=== PATIENT | male | born 1995 | race Caucasian/White ===

== ENCOUNTER 2017-06-09 23:39 | Emergency (ER) | payer BC ==
[~2017-06-09] VITALS: Ht 177.8 cm; Wt 84.9 kg
[2017-06-09 23:41] VITALS: BP 147/92
[2017-06-09] MEDS ORDERED: LIDOCAINE 1%, 20ML ONE (23:51)
[2017-06-10] MEDS ORDERED: CEPHALEXIN 500 MG CAPSULE ONE (00:21)
[2017-06-10] MEDS ORDERED: CEPHALEXIN 500 MG CAPSULE PO STA (00:33)
== END 2017-06-10 00:37 | disposition home or self-care (01) ==
LOC: ED 06-10 00:25
DX: S61.422A Laceration with foreign body of left hand, initial encounter (principal); W01.110A Fall on same level from slipping, tripping and stumbling with subsequent striking against sharp glass, initial encounter; Y93.89 Activity, other specified; Y99.8 Other external cause status; Y92.830 Public park as the place of occurrence of the external cause
CPT/HCPCS: 12002; 12042; 20520